=== PATIENT | female | born 1995 | race Caucasian/White ===

== ENCOUNTER 2018-02-24 08:56 | Emergency (ER) | payer OTHER ==
[2018-02-24] MEDS ORDERED: IBUPROFEN 600 MG TAB PO ONE (10:26)
--- NOTE | 2018-02-24 10:29 | EDPHY ---
H & P Stated Complaint: Missed step yesterday and twisted R ankle Time Seen by Provider: 02/24/18 09:32 HPI/ROS: Chief Complaint: Right ankle pain HPI: 22-year-old woman has missed a step last night while going down the stairs , inverting her ankle. She had immediate onset of pain. She has a persisting pain overnight. She is able to weight bear but is extremely difficult. She did take a roommates Percocet this morning. Last ibuprofen was last night. Has prior ankle sprains in this ankle. ROS: 10 systems were reviewed and were negative except those elements noted in the HPI. PMH: Ankle sprain Social History: No smoking, no alcohol, no recreational drug use Family History: non-contributory Physical Exam: General: Awake, alert, no acute distress Right knee, nontender, full range of motion of pain Right ankle: Patient's pain is swelling over the an inferior to the lateral malleolus. She has tenderness over the anterior talofibular ligament. There is no malleolar deformity. Mild medial tenderness without significant ecchymosis. No erythema. Decreased range of motion secondary to pain. No midfoot tenderness or pain. Capillary refills less than 3 sec. 2+ dorsalis pedis pulses. Sensations intact in all dermatomes. Skin: No rash - Personal History LMP (Females 10-55): 22-28 Days Ago Current Tetanus Diphtheria and Acellular Pertussis (TDAP): Yes - Medical/Surgical History Other PMH: healthy - Social History Smoking Status: Current every day smoker Constitutional: Initial Vital Signs Temperature (C) 36.7 C 02/24/18 09:00 Heart Rate 78 02/24/18 09:00 Respiratory Rate 16 02/24/18 09:00 Blood Pressure 127/98 H 02/24/18 09:00 O2 Sat (%) 97 02/24/18 09:00 O2 Delivery Mode Room Air Allergies/Adverse Reactions: No Known Allergies Allergy (Unverified 02/24/18 09:17) Home Medications: Medication Instructions Recorded NK [No Known Home Meds] 02/24/18 Medical Decision Making - Diagnostics Imaging Results: Imaging Impressions Ankle X-Ray 02/24/18 09:38 Impression: Lateral ankle sprain. ED Course/Re-evaluation: X-rays consistent with ankle sprain. Will place the patient in a Velcro ankle splint with crutches, follow up with orthopedist as needed. Departure - Departure Disposition: Home, Routine, Self-Care Clinical Impression: Ankle sprain Condition: Good Instructions: Ankle Sprain (ED), Ankle Stirrup Splint (ED), Crutch Instructions (ED), R.I.C.E. Treatment (ED) Additional Instructions: Take ibuprofen, 600 mg every 8 hr. You may alternate with acetaminophen, 1000 mg every 8 hr. Apply ice for 15 min of every hour while awake. Follow up with orthopedist in 4-5 days if symptoms are not improving. Referrals: NONE *PRIMARY CARE P,. [Primary Care Provider] - As per Instructions Sam Patrick MD [Medical Doctor] - As per Instructions Stand Alone Forms: School Excuse
[2018-02-24 10:45] VITALS: BP 130/100
== END 2018-02-24 10:45 | disposition home or self-care (01) ==
LOC: EDBD 08:56
DX: S93.401A Sprain of unspecified ligament of right ankle, initial encounter (principal); X50.0XXA Overexertion from strenuous movement or load, initial encounter; Y92.019 Unspecified place in single-family (private) house as the place of occurrence of the external cause; Y99.8 Other external cause status
CPT/HCPCS: L4350